=== PATIENT | male | born 1975 | race Caucasian/White ===

== ENCOUNTER 2021-12-30 06:18 | Day surgery (SDC) | payer OTHER ==
[2021-12-29 14:59] LABS: BASOPHILS % (AUTO) 0.2 % (0-1); EOSINOPHILS # (AUTO) 0.1 X10'3 (0-0.9); EOSINOPHILS % (AUTO) 0.9 % (0-6); LYMPHOCYTES # (AUTO) 1.7 X10'3 (1.1-4.8); LYMPHOCYTES % (AUTO) 11.4 % (21-51); MEAN CORPUSCULAR HEMOGLOBIN 30.6 PG (27.0-31.0); MEAN CORPUSCULAR HGB CONC 33.9 g/dL (33.0-36.5); MEAN CORPUSCULAR VOLUME 90.4 FL (78-98); MEAN PLATELET VOLUME 8.6 FL (7.4-10.4); MONOCYTES # (AUTO) 1.3 X10'3 (0-0.9); MONOCYTES % (AUTO) 8.9 % (2-12); NEUTROPHILS # (AUTO) 11.5 X10'3 (1.8-7.7); NEUTROPHILS % (AUTO) 78.6 % (42-75); PRE OP HEMATOCRIT 47.2 % (42.0-52.0); PRE OP PLATELET COUNT 272 X10'3 (140-440); RED BLOOD COUNT 5.22 X10'6 (4.70-6.10); RED CELL DISTRIBUTION WIDTH 12.8 % (11.5-14.5)
[2021-12-29 15:20] LABS: ALBUMIN 4.1 G/DL (3.4-5.0); ALKALINE PHOSPHATASE 67 IU/L (46-116); BLOOD UREA NITROGEN 12 MG/DL (7-18); BUN/CREATININE RATIO 12.2 (5.4-32.0); CALCIUM 9.3 MG/DL (8.5-10.1); CHLORIDE 104 MMOL/L (99-107); CREATININE 0.98 MG/DL (0.60-1.10); PRE OP ANION GAP 10 (8-16); PRE OP AST 73 U/L (10-37); PRE OP BILIRUB, TOTAL 0.7 MG/DL (0.0-1.0); PRE OP GLUCOSE 89 MG/DL (70-104); PRE OP POTASSIUM 3.9 MMOL/L (3.4-5.1); PRE OP SODIUM 138 MMOL/L (135-145); TOTAL CARBON DIOXIDE 23.7 MMOL/L (24-32); TOTAL PROTEIN 8.4 G/DL (6.4-8.2); eGFR 83 ML/MIN
[2021-12-29 15:27] LABS: PRE OP ALT 106 U/L (30-65)
[~2021-12-30] VITALS: Ht 152.4 cm; Wt 9.0 kg
[~2021-12-30 06:18] MED LIST: ACET-75 PO; IBUP-1986 PO; LEVO75TA PO; LISI1TAB51 PO; ROSU20TA31 PO; famotidine 20mg tablet PO ONE; ringers solution, lacted 1,000 ML IV SCH
[2021-12-30] MEDS ORDERED: BUPIVAcaine/PF 2.5 mg/ml (0.25%) 30ml vial ONE (07:13)
[2021-12-30] MEDS ORDERED: LIDOcaine 0.5% (5mg/ml) 50ml vial ONE (07:21)
[2021-12-30] MEDS ORDERED: clindamycin-Cleocin 900mg/D5W 50 ML IV ONE (07:55)
[2021-12-30] MEDS ORDERED: meperidine/PF 25mg/ml syringe IV PRN ×3 (07:55)
[2021-12-30] MEDS ORDERED: morphine 2 MG/ML inj. syringe IV PRN (07:55)
[2021-12-30] MEDS ORDERED: proCHLORperazine 10 MG/2 ml inj IV PRN (07:55)
[2021-12-30] MEDS ORDERED: ondansetron/PF 4mg/2ml inj IV PRN (07:55)
[2021-12-30] MEDS ORDERED: ringers solution, lacted 1,000 ML IV SCH (07:55)
[2021-12-30] MEDS ORDERED: morphine 4 MG/ML inj SYRINge IV PRN (07:55)
[2021-12-30] MEDS ORDERED: fentaNYL/PF 50MCG/1 ML 2ML syringe ONE (07:59)
[2021-12-30] MEDS ORDERED: midazolam 1 mg/ML 2ml injection ONE (07:59)
[2021-12-30 08:45] VITALS: BP 128/74
--- NOTE | 2021-12-30 08:45 | NUR ---
NO CHANGES IN ASSESSMENT, PT UP AND GETTING DRESSED, VSS, DENIES PAIN, DRSG-CDI, SCDS OFF, PIV OUT, D/C INSTRUCTIONS GIVEN TO PT-ALL QUESTIONS ANSWERED, PT TAKEN VIA W/C TO VEHICLE WITH ALL BELONGINGS FOR TO TRANSPORT HOME.
--- NOTE | 2021-12-30 08:45 | NUR ---
PT ARRIVED TO VIA GURNEY, AWAKE AND DENIES PAIN, VSS, LEFT HAND WRAPPED-CDI, +CSM, ICE IN PLACE, PIV 20G TO RIGHT HAND.
[2021-12-30 08:50] VITALS: BP 114/67
[2021-12-30 09:00] VITALS: BP 133/82
[2021-12-30 09:10] VITALS: BP 136/81
[2021-12-30] MEDS ORDERED: acetaminophen 325mg tablet PO PRN (09:10)
[2021-12-30] MEDS ORDERED: HYDROcodone/acetaminophen 10/325mg tab PO PRN (09:10)
[2021-12-30] MEDS ORDERED: ibuprofen tablet 400 MG TABLET PO PRN (09:10)
[2021-12-30 09:35] VITALS: BP 113/50
[2021-12-30 09:44] VITALS: BP 113/50
[2021-12-30] MEDS ORDERED: lisinopril 20mg tablet PO SCH (20:00)
[2021-12-30] MEDS ORDERED: HYDROchlorothiazide 12.5mg capsule PO SCH (20:00)
[2021-12-30] MEDS ORDERED: atorvastatin 20mg tablet PO SCH (21:00)
[2021-12-31] MEDS ORDERED: levoTHYROXINE 75mcg tablet PO SCH (08:00)
== END 2021-12-30 09:15 | disposition home or self-care (01) ==
LOC: PAS 06:18
PROVIDERS: ATTEND Orthopaedic Surgery
DX: G56.02 Carpal tunnel syndrome, left upper limb (principal); Z79.899 Other long term (current) drug therapy; Z98.890 Other specified postprocedural states; I10 Essential (primary) hypertension; Z88.0 Allergy status to penicillin; E66.01 Morbid (severe) obesity due to excess calories; Z82.49 Family history of ischemic heart disease and other diseases of the circulatory system
CPT/HCPCS: 36415; 64721; 80053; 82948; 85025; 87811; 93005; A6222; A6258; J2250; J3010; J3490; J7030; J7120; Z7506; Z7512; A4215; A6449; A7000

== ENCOUNTER 2022-04-27 05:06 | Day surgery (SDC) | payer OTHER ==
[2022-04-21 10:17] LABS: BASOPHILS % (AUTO) 0.5 % (0-1); EOSINOPHILS # (AUTO) 0.1 X10'3 (0-0.9); EOSINOPHILS % (AUTO) 1.3 % (0-6); HEMATOCRIT 46.4 % (42.0-52.0); LYMPHOCYTES # (AUTO) 2.6 X10'3 (1.1-4.8); LYMPHOCYTES % (AUTO) 29.1 % (21-51); MEAN CORPUSCULAR HEMOGLOBIN 31.4 PG (27.0-31.0); MEAN CORPUSCULAR HGB CONC 34.6 g/dL (33.0-36.5); MEAN CORPUSCULAR VOLUME 90.9 FL (78-98); MEAN PLATELET VOLUME 8.9 FL (7.4-10.4); MONOCYTES # (AUTO) 0.9 X10'3 (0-0.9); MONOCYTES % (AUTO) 9.8 % (2-12); NEUTROPHILS # (AUTO) 5.2 X10'3 (1.8-7.7); NEUTROPHILS % (AUTO) 59.3 % (42-75); PLATELET COUNT 225 X10'3 (140-440); RED BLOOD COUNT 5.11 X10'6 (4.70-6.10); WHITE BLOOD COUNT 8.8 X10'3 (4.5-11.0)
[2022-04-21 10:46] LABS: ALANINE AMINOTRANSFERASE 99 U/L (12-78); ALBUMIN 4.3 G/DL (3.4-5.0); ALKALINE PHOSPHATASE 78 IU/L (46-116); ANION GAP 10 (8-16); ASPARTATE AMINO TRANSFERASE 59 U/L (10-37); BILIRUBIN,TOTAL 0.8 MG/DL (0.1-1.0); BLOOD UREA NITROGEN 14 MG/DL (7-18); BUN/CREATININE RATIO 14.7 (5.4-32.0); CALCIUM 9.5 MG/DL (8.5-10.1); CHLORIDE 101 MMOL/L (99-107); CREATININE 0.95 MG/DL (0.60-1.10); GLUCOSE 104 MG/DL (70-104); POTASSIUM 3.9 MMOL/L (3.5-5.1); SODIUM 135 MMOL/L (135-145); TOTAL CARBON DIOXIDE 23.9 MMOL/L (24-32); TOTAL PROTEIN 8.7 G/DL (6.4-8.2); eGFR 86 ML/MIN
[~2022-04-27] VITALS: Ht 175.3 cm; Wt 167.3 kg
[~2022-04-27 05:06] MED LIST changes: -famotidine 20mg tablet PO ONE
[2022-04-27 05:30] VITALS: BP 137/79
[2022-04-27] MEDS ORDERED: famotidine 20mg tablet PO ONE (05:30)
[2022-04-27] MEDS ORDERED: ceFAZolin inj. 3,000 MG in normal saline 100ml IV soln 100 ML IV ONE (05:30)
--- NOTE | 2022-04-27 05:30 | NUR ---
PHARMACY CALLED REGARDING PENICILLIN ALLERGY. PHARMACY REPORTED THAT THEY HAVE BEEN IN CONTACT WITH [facility] AND PER DR ORELLANA IT IS OK FOR [facility].
[2022-04-27] MEDS ORDERED: BUPIVAcaine 0.5% inj/PF 30 ML ONE ×2 (06:56→07:42)
[2022-04-27] MEDS ORDERED: midazolam 1 mg/ML 2ml injection ONE (07:15)
[2022-04-27] MEDS ORDERED: FENTANYL CITRATE/PF 50 MCG/1 ML VIAL ONE (07:15)
[2022-04-27] MEDS ORDERED: BUPIVAcaine 0.5% inj/PF 30 ml vial IJ ONE (07:49)
[2022-04-27] MEDS ORDERED: propofol inj 20 ML IV ONE (07:53)
[2022-04-27] MEDS ORDERED: LIDOcaine 0.5% (5mg/ml) 50ml vial ONE (07:53)
[2022-04-27 08:00] VITALS: BP 128/83
[2022-04-27] MEDS ORDERED: meperidine/PF 25mg/ml syringe IV PRN ×3 (08:00)
[2022-04-27] MEDS ORDERED: morphine 4 MG/ML inj SYRINge IV PRN (08:00)
[2022-04-27] MEDS ORDERED: labetalol 20mg/4ml (5mg/ml) syringe IV PRN (08:00)
[2022-04-27] MEDS ORDERED: hydrALAZINE 20mg/ml inj. IV PRN (08:00)
[2022-04-27] MEDS ORDERED: acetaminophen 1,000mg/100ml IV 100 ML IV PRN (08:00)
[2022-04-27] MEDS ORDERED: ondansetron/PF 4mg/2ml inj IV PRN (08:00)
[2022-04-27] MEDS ORDERED: ringers solution, lacted 1,000 ML IV SCH (08:00)
[2022-04-27] MEDS ORDERED: morphine 2 MG/ML inj. syringe IV PRN (08:00)
[2022-04-27] MEDS ORDERED: proCHLORperazine 10 MG/2 ml inj IV PRN (08:00)
--- NOTE | 2022-04-27 08:00 | NUR ---
Received from OR via [facility], accompanied by Anesthesiologist and report given by [facility] Anesthesiologist. PATIENT WAKING UP, NO S/S OF PAIN, V/S WNL, PIV 20G TO LUE, RIGHT WRIST DRESSING CDI. ICE AND ELEVATED RUE. Addendum: 04/27/22 at 0822 by Darell Graff RN Amended: Links added.
[2022-04-27] MEDS ORDERED: HYDROcodone/acetaminophen 10/325mg tab PO PRN (08:05)
[2022-04-27 08:10] VITALS: BP 133/81
[2022-04-27 08:20] VITALS: BP 119/102
[2022-04-27 08:30] VITALS: BP 118/65
[2022-04-27 08:40] VITALS: BP 125/71
== END 2022-04-27 08:45 | disposition home or self-care (01) ==
LOC: PAS 05:06
PROVIDERS: ATTEND Orthopaedic Surgery
DX: G56.01 Carpal tunnel syndrome, right upper limb (principal); E66.01 Morbid (severe) obesity due to excess calories; I10 Essential (primary) hypertension; Z79.899 Other long term (current) drug therapy; Z98.890 Other specified postprocedural states; Z88.0 Allergy status to penicillin; Z72.89 Other problems related to lifestyle
CPT/HCPCS: 36415; 64721; 80053; 82948; 85025; A6222; J0690; J2250; J2704; J3010; J3490; J7030; J7120; S0020; Z7506; Z7512; A4215; A4565; A6449; A7000